=== PATIENT | female | born 1970 | race Caucasian/White ===

== ENCOUNTER 2016-12-30 13:06 | Observation (INO) | payer OTHER ==
[~2016-12-30 13:06] MED LIST: ALBUTEROL SULF8.5 G1 IH; HYDROCODON-ACE1 EAC7 PO; LEXAPRO10 M1 PO; NO HOME MEDICATION XX; NO MEDICATIONS; PREDNISONE10 MG PO; PRILOSEC20 M1 PO; PROZAC20 M1 PO; VALIUM5 MG PO; ZITHROMAX250MG Z-PAK PO
[2016-12-30] MEDS ORDERED: ZOLOFT50 M1 PO (15:14)
[2016-12-30] MEDS ORDERED: COZAAR50 M1 PO (15:15)
[2016-12-30 16:01] LABS: BASO % 0.2 % (0-2); EOS % 0.3 % (0-7); HCT-HEMATOCRIT 45.4 % (34.0-49.0); HGB-HEMOGLOBIN 16.3 gm/dl (12.0-15.5); IMMATURE GRANULOCYTES ABSOLUTE 0.02 tho/cmm (0-0.03); IMMATURE GRANULOCYTES PERCENT 0.3 % (0-0.3); LYMPH % 14.8 % (20-45); MCH (MEAN CORPUSCULAR HGB) 35.3 pg (28.0-32.0); MCHC MEAN CORPUSCULAR HGB CONC 35.9 % (32.0-36.0); MCV (MEAN CELL VOLUME) 98.3 fl (82.0-96.0); MEAN PLATELET VOLUME 9.7 cmc (9.4-12.4); MONO % 16.4 % (0-12); MONOCYTE ABSOLUTE COUNT 1.1 tho/cmm (0.0-1.2); NEUTROPHIL ABSOLUTE COUNT 4.5 tho/cmm (1.6-8.0); NEUTROPHIL-AUTOMATED 4.5 tho/cmm (1.6-8.0); PLATELET COUNT 194 tho/cmm (150-450); RED BLOOD COUNT 4.62 mil/cmm (4.00-5.20); RED CELL DISTRIBUTION WIDTH 13.4 % (12.4-16.4); WHITE BLOOD COUNT 6.5 tho/cmm (4.0-10.0)
[2016-12-30 16:10] LABS: PREGNANCY-SERUM NEGATIVE (NEGATIVE)
[2016-12-30 16:18] LABS: ALB/GLOB RATIO 0.8 (0.8-2.0); ALBUMIN 3.8 g/dl (3.5-5.0); ALKALINE PHOSPHATASE 97 U/L (33-138); ALT/SGPT 49 U/L (12-78); ANION GAP 16 mmol/L (0-20); AST/SGOT 50 U/L (10-40); BILIRUBIN,TOTAL 0.5 mg/dl (0-1.5); BLOOD UREA NITROGEN 26 mg/dl (6-24); CALCIUM 8.8 mg/dl (8.5-10.5); CARBON DIOXIDE-VENOUS 20 mmol/L (22-32); CHLORIDE 101 mmol/l (96-110); CREATININE 3.21 mg/dl (0.50-1.10); GLUCOSE 124 mg/dL (70-110); LIPASE 221 U/L (73-393); POTASSIUM 3.2 mmol/L (3.7-5.1); SODIUM 134 mmol/L (135-145); eGFR VALUE FOR BLACK 19 mL/Min
[2016-12-30 16:18] LABS: URINE BILIRUBIN SMALL (NEG); URINE BLOOD MODERATE (NEG); URINE GLUCOSE (UA) NEGATIVE (NEG); URINE KETONE SMALL (NEG); URINE LEUKOCYTE ESTERASE POSITIVE (NEG); URINE NITRITE NEGATIVE (NEG); URINE PROTEIN MODERATE (NEG); URINE SPECIFIC GRAVITY 1.025 (1.003-1.030)
[2016-12-30 16:23] LABS: URINE APPEARANCE CLOUDY; URINE COLOR DARK YELLOW
[2016-12-30 16:30] LABS: URINE AMORPHOUS 1+
[2016-12-30 16:31] LABS: URINE BACTERIA 2+; URINE RBC 0 /[HPF] (0-5); URINE WBC 0-3 /[HPF] (0-5)
[2016-12-31 06:48] LABS: ANION GAP 12 mmol/L (0-20); BLOOD UREA NITROGEN 19 mg/dl (6-24); CALCIUM 6.8 mg/dl (8.5-10.5); CARBON DIOXIDE-VENOUS 18 mmol/L (22-32); CHLORIDE 117 mmol/l (96-110); CREATININE 1.75 mg/dl (0.50-1.10); GLUCOSE 97 mg/dL (70-110); POTASSIUM 4.1 mmol/L (3.7-5.1); SODIUM 143 mmol/L (135-145); eGFR VALUE FOR BLACK 40 mL/Min
[2017-01-01 06:05] LABS: ANION GAP 14 mmol/L (0-20); BLOOD UREA NITROGEN 11 mg/dl (6-24); CALCIUM 7.4 mg/dl (8.5-10.5); CARBON DIOXIDE-VENOUS 19 mmol/L (22-32); CHLORIDE 119 mmol/l (96-110); CREATININE 1.15 mg/dl (0.50-1.10); GLUCOSE 94 mg/dL (70-110); POTASSIUM 4.7 mmol/L (3.7-5.1); SODIUM 147 mmol/L (135-145); eGFR VALUE FOR BLACK 67 mL/Min
[2017-01-01] MEDS ORDERED: FLAGYL500 M1 PO (08:43)
[2017-01-01] MEDS ORDERED: TYLENOL325 M2 PO (08:47)
[2017-01-01] MEDS ORDERED: ZOFRAN ODT4 MG SL (08:50)
== END 2017-01-01 09:12 ==
LOC: EDMED 13:06 → EMR2 17:49 → CAR1 19:25
PROVIDERS: Emergency Medicine; Nurse Practitioner; ADMIT Hospitalist
DX: R11.2 Nausea with vomiting, unspecified (principal); R19.7 Diarrhea, unspecified; N17.9 Acute kidney failure, unspecified; E86.0 Dehydration; E87.6 Hypokalemia; I10 Essential (primary) hypertension; F32.9 Major depressive disorder, single episode, unspecified; B96.89 Other specified bacterial agents as the cause of diseases classified elsewhere; F17.210 Nicotine dependence, cigarettes, uncomplicated; Z79.899 Other long term (current) drug therapy; Z90.49 Acquired absence of other specified parts of digestive tract; Z90.89 Acquired absence of other organs; Z98.890 Other specified postprocedural states
CPT/HCPCS: G0378; J2405; J3480; J7030; P9612